=== PATIENT | male | born 1990 | race Caucasian/White ===

== ENCOUNTER 2023-10-28 00:47 | Emergency (ER) | payer OTHER, SELFPAY ==
[2023-10-28] VITALS (11 sets, daily range): BP systolic 122–131; BP diastolic 84–98; PULSE 69–90; RESP 12–17; TEMP 36.6; O2SAT 96–100
--- NOTE | ~2023-10-28 | XR_ITS ---
Portable chest x-ray Comparison: None Clinical History: Chest pain Findings: Lungs are clear, without focal consolidation or pleural effusion. Possible COPD. Cardiome diastinal silhouette is unremarkable. Bones and soft tissues are unremarkable. Impression: Clear lungs. Possible COPD. Reviewed, dictated and finalized at [facility]. TER [employer] Impression: Clear lungs. Possible COPD.
--- NOTE | 2023-10-28 00:51 | ECG_ITS ---
Measurements Intervals [place] Rate: 74 P: 80 DC: 169 QRS: -87 QRSD: 105 T: 67 QT: 414 QTc: 460 Interpretive Statements SINUS RHYTHM WITH SINUS ARRHYTHMIA ATRIAL PREMATURE COMPLEX INCOMPLETE RIGHT BUNDLE BRANCH BLOCK LEFT ANTERIOR FASCICULAR BLOCK BASELINE ARTIFACT- AVR, V1 ABNORMAL ECG NO PREVIOUS ECG AVAILABLE FOR COMPARISON Electronically Signed On 10-28-2023 6:20:14 [employer] by Kenneth Regalado D.O.
[2023-10-28 00:59] LABS: Basophils Absolute Auto 0.09 K/mm3 (0.00-0.10); Eosinophils Absolute Auto 0.49 K/mm3 (0.02-0.50); Eosinophils Percent Auto 5.3 % (1.0-6.0); Hematocrit 42.8 % (40.0-54.0); Hemoglobin 14.6 g/dL (14.0-18.0); Immature Granulocyte Absolute 0.02 K/mm3 (0.00-0.00); Immature Granulocyte Percent A 0.2 % (0.0-0.0); Lymphocytes Absolute Auto 3.45 K/mm3 (1.10-4.50); Lymphocytes Percent Auto 37.5 % (18.0-42.0); Mean Corpuscular HGB Conc 34.1 g/dL (32.0-36.0); Mean Corpuscular Hemoglobin 28.9 pg (27.0-31.0); Mean Corpuscular Volume 84.6 fL (78.0-102.0); Mean Platelet Volume 8.8 fl (8.7-11.0); Monocytes Absolute Auto 0.61 K/mm3 (0.10-0.90); Monocytes Percent Auto 6.6 % (2.0-11.0); Neutrophils Absolute Auto 4.5 K/mm3 (1.7-7.2); Neutrophils Percent Auto 49.4 % (50.0-70.0); Platelet Count Result 236 K/mm3 (150-420); Red Blood Count 5.06 M/mm3 (4.70-6.10); White Blood Count 9.2 K/mm3 (4.8-10.8)
--- NOTE | 2023-10-28 00:59 | ED.CHESTPAIN ---
HPI - Chest Pain General Chief Complaint: Chest Pain Stated Complaint: chest pain Time Seen by Provider: 10/28/23 00:50 Source: patient and family Mode of arrival: ambulatory Limitations: no limitations History of Present Illness HPI narrative: this is a 33-year-old male with history of anxiety and depression and ADHD and was recently started on Vyvanse approximately 2 weeks ago, the patient developed an episode of chest discomfort earlier this this evening around 10:00 a.m. and has been persistent with he rates his pain at about a 2/10, with no nausea vomiting no diaphoresis no shortness of breath, no radiation of his pain. MD complaint: chest discomfort Onset (ago): hour(s) Timing of current episode: constant Prior episodes: No Onset: during rest Pain location: left chest Pain radiation: none Severity: mild Pain scale (0-10): 1 Quality: aching Relieving factors: nothing Exacerbating factors: nothing Related Data Allergies Allergy/AdvReac Type Severity Reaction Status Date / Time No Known Allergies Allergy Verified 10/28/23 00:55 Review of Systems Review of Systems: All systems reviewed & are unremarkable except as noted in HPI and below PMFSH Past Medical History Medical History Anxiety and depression Exam Const: General: healthy appearing Nutritional Appearance: well nourished Orientation/consciousness: patient oriented x3 Limitations: no limitations Eyes: Conjunctivae: conjunctivae normal Pupils: Equal, round and reactive pupils present EOM: EOMs intact bilaterally Neck: Neck: normal visual inspection Chest: Chest palpation & inspection: normal inspection of the chest and tenderness Resp: Effort & Inspection: normal respiratory effort Auscultation: clear to auscultation bilaterally Cardio: Rate: regular rate Rhythm: regular rhythm GI: GI Palp: Yes Soft to palpation Auscultation: normal bowel sounds Skin: General skin exam: normal color Neuro: General: patient oriented x3, moves all extremities and no meningeal signs Extrem: General: no pedal edema Course Course Emergency Course: EKG shows normal sinus rhythm, labs performed and reviewed Vital Signs Vital signs: Vital Signs Temperature 36.6 C 10/28/23 00:47 Pulse Rate 72 10/28/23 00:47 Respiratory Rate 16 10/28/23 00:47 Blood Pressure 130/94 H 10/28/23 00:47 Pulse Oximetry 98 10/28/23 00:47 Oxygen Delivery Room Air 10/28/23 00:47 Temperature 36.6 C 10/28/23 00:47 Pulse Rate 83 10/28/23 00:54 Respiratory Rate 16 10/28/23 00:47 Blood Pressure 130/94 H 10/28/23 00:47 Pulse Oximetry 98 10/28/23 00:47 Oxygen Delivery Room Air 10/28/23 00:47 MDM - Chest Pain Lab Data 10/28/23 00:55 10/28/23 00:55 Labs: Lab Results 10/28/23 Range/Units 00:55 WBC Pending RBC Pending Hgb Pending Hct Pending MCV Pending MCH Pending MCHC Pending RDW Pending Plt Count Pending MPV Pending Immature Gran % (Auto) Pending Neut % (Auto) Pending Lymph % (Auto) Pending [place] % (Auto) Pending Eos % (Auto) Pending Baso % (Auto) Pending Lymph # (Auto) Pending [place] # (Auto) Pending Eos # (Auto) Pending Baso # (Auto) Pending Abs Immat Gran (auto) Pending Absolute Neuts (auto) Pending Absolute Nucleated RBC Pending Nucleated RBC % Pending PT Pending INR Pending APTT Pending D-Dimer Pending Sodium Pending Potassium Pending Chloride Pending Carbon Dioxide Pending Anion Gap Pending BUN Pending Creatinine Pending Estim Creat Clear Calc Pending Estimated GFR Pending Glucose Pending Calculated Osmolality Pending Calcium Pending Total Bilirubin Pending AST Pending ALT Pending Alkaline Phosphatase Pending Troponin I Pending NT-Pro-B Natriuret Pep Pending Total Protein Pending
[2023-10-28 01:20] LABS: D Dimer 0.19 mg/L (0.19-0.50); Partial Thromboplastin Time 27.9 SEC (23.90-30.70); Prothrombin Time 10.8 Seconds (9.50-12.10)
[2023-10-28 01:27] LABS: Alanine Aminotransferase 22 U/L (16-63); Albumin Level 3.8 g/dL (3.4-5.0); Alkaline Phosphatase 80 U/L (46-116); Anion Gap 10 mmol/L (8-16); Aspartate Amino Transferase 16 U/L (15-37); Bilirubin,Total 0.4 mg/dL (0.00-1.00); Blood Urea Nitrogen 23 mg/dL (7-18); Calcium 8.5 mg/dL (8.5-10.1); Carbon Dioxide 30 mmol/L (21-32); Chloride 104 mmol/L (98-108); Estimated CRCL calculation 84 ml/min; Estimated Glomerular Filt Rate > 60; Glucose 97 mg/dL (70-99); Lipase 57 U/L (16-77); NT Pro B Type Natriuretic Pept 16 pg/mL (0-125); Osmolality Calculated 301 mOsm/kg (285-295); Potassium 3.8 mmol/L (3.5-5.1); Sodium 144 mmol/L (136-145); Total Protein 7.1 g/dL (6.4-8.2); Troponin I 4.5 ng/L (0.00-60.4)
== END 2023-10-28 02:27 | disposition home or self-care (01) ==
PROVIDERS: Emergency Provider Emergency Medicine; PCP Physician Assistant
DX: F41.9 Anxiety disorder, unspecified (principal); F32.A Depression, unspecified; R07.89 Other chest pain; F90.9 Attention-deficit hyperactivity disorder, unspecified type; Z79.899 Other long term (current) drug therapy
CPT/HCPCS: 36415; 71045; 80053; 83690; 83880; 84484; 85025; 85380; 85610; 85730; 93005; 99284